=== PATIENT | female | born 1980 | race Caucasian/White ===

== ENCOUNTER 2017-01-12 07:04 | Emergency (ER) | payer BC ==
[~2017-01-12] VITALS: Ht 175.3 cm; Wt 90.7 kg
[~2017-01-12 07:04] MED LIST: AUGMENTIN 875-1 EACH PO; CYMBALTA60 MG PO; FIORICET 325 MG1 TAB PO; MEDROL 4MG. DOSE4 MG PO; METOCLOPRAMIDE H5 MG PO; OMEPRAZOLE20 MG PO; OXYCODONE-ACETA1 TAB PO; PERCOGESIC EXTR1 TAB PO; PRENATAL1 TA2 PO; PROMETRIUM; TESSALON PERLE100 MG PO; ZANTAC 150150 MG PO; ZOFRAN4 MG PO; [UNRECOGNIZED DRUG - OTHER] PO
[2017-01-12] MEDS ORDERED: BUSPIRONE HCL15 MG PO (07:14)
--- NOTE | 2017-01-12 07:22 | Emergency Room Report ---
History of Present Illness Time Seen by MD Joseph Presenting Problem in Triage Pt arrived:Walked Presenting Problem:MIGRAINE SINCE 399 Onset of symptoms date/time:/ or onset unknown for:MEDICAL HX UNKNOWN Treatment Prior to Arrival: [employer]CH[employer]IC[employer] Provided by:SELF Sepsis Risk Assessment: Temp: 97.6 B/P: 132/83 MAP: 99 Pulse: 77 Resp: 18 Recent fever? N Clinical Suspician of Infection? N Mental Status: 1 - Regular (Normal Baseline) Sepsis Risk:Low Sepsis Risk Have you (or family members/close friends) recently traveled outside the [place]? N If Yes, where/when: Have you had exposure to infectious disease within the past month? TB? Other? Specify: Source patient, RN notes reviewed, family, old records Exam Limitations no limitations Comment pt with acute migraine with hx of migraine Cardiac Chest Pain Chest pain indicative of cardiac No Timing/Duration this morning Severity moderate ALLERGIES Coded Allergies: Penicillins (Mild, 01/12/17) acetaminophen (From LORTAB) (Mild, 01/12/17) diphenhydramine (Mild, 01/12/17) hydrocodone (From LORTAB) (Mild, 01/12/17) tuberculin, purified protein deriva (Mild, 01/12/17) Home Medications Reported Medications Buspirone Hcl 15 MG PO QHS #30 History Medical History General CAD? No Angina: No [place]: No Hypertension? No Hyperlipidemia? No CHF? No DVT? No PE? No COPD? No Asthma? No Anemia? No GERD? No Gastric ulcers? No GI Bleed? No Hernia? No Thyroid Problems? No Hypothyroidism? No CVA? No Seizures? No Diabetes? No Renal Insuffiency? No End Stage Renal Disease? No UTI? No Stones? No BPH? No GB Disease: Yes Nephritic Syndrome? No Asplenia? No Hepatitis? No Sickle Cell Disease? No Arthritis? No Migraines? No Cataracts? No Glaucoma? No MRSA? No HIV? No TB? No Anxiety? No Depression? No Cancer? No More? No Immunization Hx Ped.Immunizations UTD Yes DT/Tetanus 5-10 YRS Flu NEVER Pneumonia NEVER Surgical Hx Previous Surgery?Y TONSILS REMOVED EGD BACK SURGERY-DISCECTOMY WISDOM TEETH EXTRACTION SPINAL FUSION GASTRIC SLEEVE GALLBLADDER HITAL HERNIA KITCHEN LEAD Hx LMP N/A Family History Family Hx Diabetes No CAD No Hypertension No Hyperlipidemia No Cancer Yes TB No Social History Smoking Hx Smoker: Former Smoker Tobacco: Yes Type Cigarettes Packs/day < 1 Pack Alcohol Alcohol: No Drugs none Review of Systems All Other Systems Reviewed and Negative Constitutional denies fever Eyes denies drainage ENT denies: ear pain, epistaxis, throat pain. Respiratory denies cough, denies wheezing Cardiovascular denies chest pain, denies syncope Gastrointestinal denies abdominal pain, denies diarrhea, denies vomiting Genitourinary denies: dysuria, frequency, hesitancy, hematuria. Musculoskeletal denies back pain, denies joint pain, denies joint swelling, denies neck pain Skin denies rash Psychiatric/Neurological see HPI, headache, denies seizure Physical Exam Vital Signs Vital Signs Date Time Temp Pulse Resp B/P Pulse O2 O2 Flow FiO2 Ox Delivery Rate 01/12 0749 18 01/12 0708 97.6 77 18 132/83 98 - WBC >12,000 or <4,000 or 10% bands? 2 or more SIRS Criteria Met? B/P:132/83 MAP:99 Creatinine >2.0? UA output<0.5ml/kg/hr for 2 hrs? Platelet count >100,000? Lactate >2.0mmol/1? INR >1.2 or PTT > than 60 sec? Evidence of Organ Dysfunction? Provider documented clinical suspician of infection? N Sepsis Criteria Count: 0 Sepsis Risk: Low Sepsis Risk General Appearance no apparent distress Eye Exam - bilateral eye PERRL, bilateral eye EOMI Ear, Nose, Throat normal ENT inspection Neck supple Respiratory Status No: respiratory distress. 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 No Results/Orders Current Medication Orders Sig/Gloria Start time Last Medication Dose Route Stop Time Status Admin Ketorolac 30 MG ONCE ONE 01/12 730 DC 01/12 Tromethamine IV 01/12 0731 0749 Metoclopramide HCl 10 MG ONCE ONE 01/12 730 DC 01/12 IVP 01/12 0731 0746 Promethazine HCl 12.5 MG ONCE ONE 01/12 730 DC 01/12 IV 01/12 0731 0746 Sodium Chloride 25 ML ONCE ONE 01/12 730 DC IV 01/12 0744 Sodium Chloride 1,000 ML .Q1H1M 01/12 730 AC 01/12 IV 01/12 830 0742 Sodium Chloride 10 ML PRN PRN 01/12 730 AC IV 01/13 0721 Sodium Chloride 1,000 ML .STK-MED ONE 01/12 718 DC IV Ketorolac 0 .STK-MED ONE 01/12 717 DC Tromethamine .ROUTE Metoclopramide HCl 0 .STK-MED ONE 01/12 717 DC .ROUTE Promethazine HCl 0 .STK-MED ONE 01/12 717 DC .ROUTE Progress ED Progress Notes Date 01/12/17 Time 0817 Comment better Departure Departure Time of Disposition 0814 Disposition DC Home or Self Care(routine) Clinical Impression Primary Impression: Headache Qualifiers: Headache type: unspecified Headache chronicity pattern: acute headache Intractability: not intractable Qualified Code: R51 - Headache Condition STABLE Patient Instructions DI for Headache Additional Instructions fluids and call pcp for follow up Discharge Counseling Counseled pt/family regarding diagnosis, medications/RX, follow up needs ED Critical Care Critical Care No at 0817
[2017-01-12 08:31] VITALS: BP 121/75
== END 2017-01-12 08:31 | disposition home or self-care (01) ==
LOC: ER 07:04
DX: R51 Headache (principal); Z88.6 Allergy status to analgesic agent

== ENCOUNTER 2017-05-08 09:23 | Emergency (ER) | payer BC ==
[~2017-05-08] VITALS: Ht 175.3 cm; Wt 97.5 kg
[~2017-05-08 09:23] MED LIST changes: +BUSPIRONE HCL15 MG PO
[2017-05-08] MEDS ORDERED: CYCLOBENZAPRINE10 MG PO (09:52)
[2017-05-08] MEDS ORDERED: LEVAQUIN250 M1 PO (09:52)
[2017-05-08] MEDS ORDERED: PROMETHAZINE D118 ML PO (09:52)
--- NOTE | 2017-05-08 09:52 | Urgent Treatment Center Report ---
History of Present Issue Date/Time Seen by Provider 05/08/17 0946 Visit Reason Pt arrived:Walked Presenting Problem:PT IS C.O HEAD CONGESTION, RIGHT EAR PAIN AND NECK PAIN THAT STARTED TUESDAY Location if Accident: Onset of symptoms date/time:/ or onset unknown for:MEDICAL HX UNKNOWN Have you (or family members/close friends) recently traveled outside the [place]? N If Yes, where/when: Have you had exposure to infectious disease within the past month? TB? Other? Specify: Source patient, RN notes reviewed Exam Limitations no limitations Comment Bilateral ear pain, cough, congestion and malaise X 3-4 days. No fever. Has also pulled a muscle in her neck from coughing so hard. ALLERGIES Coded Allergies: Penicillins (Mild, 01/12/17) acetaminophen (From LORTAB) (Mild, 01/12/17) diphenhydramine (Mild, 01/12/17) hydrocodone (From LORTAB) (Mild, 01/12/17) tuberculin, purified protein deriva (Mild, 01/12/17) History Medical History General CAD? No Angina: No [place]: No Hypertension? No Hyperlipidemia? No CHF? No DVT? No PE? No COPD? No Asthma? No Anemia? No GERD? No Gastric ulcers? No GI Bleed? No Hernia? No Thyroid Problems? No Hypothyroidism? No CVA? No Seizures? No Diabetes? No Renal Insuffiency? No UTI? No Stones? No BPH? No GB Disease: Yes Nephritic Syndrome? No Asplenia? No Hepatitis? No Sickle Cell Disease? No Arthritis? No Migraines? No Cataracts? No Glaucoma? No MRSA? No HIV? No TB? No Anxiety? No Depression? No Cancer? No More? No Immunization HX DT/Tetanus 5-10 YRS Flu NEVER Pneumonia NEVER Surgical Hx Previous Surgery?Y TONSILS REMOVED EGD BACK SURGERY-DISCECTOMY WISDOM TEETH EXTRACTION SPINAL FUSION GASTRIC SLEEVE GALLBLADDER HITAL HERNIA Family History Family HX Diabetes No CAD No Hypertension No Hyperlipidemia No Cancer Yes TB No Social History Smoking Hx Smoker: Former Smoker Tobacco: No Packs/day < 1 Pack Alcohol Alcohol: No Review of Systems All Other Systems Reviewed and Negative ENT ear pain, nose discharge, nose congestion. Respiratory cough Physical Exam Vital Signs Vital Signs Date Time Temp Pulse Resp B/P Pulse O2 O2 Flow FiO2 Ox Delivery Rate 05/08 0940 97.8 70 20 101/57 97 - WBC >12,000 or <4,000 or 10% bands? 2 or more SIRS Criteria Met? B/P: MAP:71 Creatinine >2.0? UA output<0.5ml/kg/hr for 2 hrs? Platelet count >100,000? Lactate >2.0mmol/1? INR >1.2 or PTT > than 60 sec? Evidence of Organ Dysfunction? Provider documented clinical suspician of infection? Sepsis Criteria Count: 1 Sepsis Risk: General Appearance normal appearance, no apparent distress Ear, Nose, Throat hearing grossly normal, abnormal TM (R), abnormal TM (L) Neck normal inspection, non-tender, supple, full range of motion Respiratory Status No: respiratory distress, trachea midline, chest symmetrical. Lung Sounds bilateral: decreased breath sounds, wheezing. Cardiovascular normal exam, regular rate/rhythm, no peripheral edema, no gallop, no JVD, no murmur, no rub Extremities non-tender, normal range of motion, normal inspection, normal capillary refill Neurologic alert, normal exam, oriented x 3 Mental status normal mood/affect Medical Decision Making LABS/Meds/Orders Pt receiving controlled substance in ED? No Departure Departure Time of Disposition 0949 Disposition DC Home or Self Care(routine) Clinical Impression Primary Impression: Sinusitis Qualifiers: Sinusitis location: maxillary Chronicity: acute Recurrence: not specified as recurrent Qualified Code: J01.00 - Acute maxillary sinusitis, unspecified Secondary Impressions: Bronchitis Condition STABLE Referrals Frances Valdes APRN (Family) Patient Instructions DI for Sinusitis Discharge Counseling Counseled pt/family regarding diagnosis, medications/RX, home care, follow up needs Prescriptions Current Visit Scripts Levofloxacin (Levaquin) 250 MG PO DAILY #7 TAB PROMETHAZINE/DEXTROMETHORPHAN (Promethazine-Dm Syrup) 118 ML PO QIDP PRN cough #120 SYR Cyclobenzaprine Hcl (Cyclobenzaprine 10MG) 10 MG PO TIDP PRN muscle spasm #30 TAB at 0978
[2017-05-08 10:00] VITALS: BP 101/57
--- OUTSIDE RECORDS SUMMARY | 2017-05-09 16:28 | External Medical Summary Rpt ---
Author Author , TRACEE EASLEY Address Unknown Phone [email or web address] Immunization Name Date Rout CVX Reac Dose Comm Prov Is Faci e tion ent ider Refu lity Give sed n Td 01-0 9 999 Hist H149 No H149 (madison 8-20 ori lt), 04 al Info adso rmat rbed ion - Sour ce Unsp ecif ied
--- OUTSIDE RECORDS SUMMARY | 2017-05-09 16:28 | External Medical Summary Rpt ---
Author Author [employer] Organization [employer] Address Unknown Phone Unavailable Purpose Continuity of Care Document - through 2016
--- OUTSIDE RECORDS SUMMARY | 2017-05-09 16:28 | External Medical Summary Rpt ---
Author Author TRACEE Address Unknown Phone [email or web address] Purpose Continuity of Care Document - through 2016
--- OUTSIDE RECORDS SUMMARY | 2017-05-09 16:28 | External Medical Summary Rpt ---
Author Author , TRACEE EASLEY Address Unknown Phone [email or web address] Immunization Name Date Rout CVX Reac Dose Comm Prov Is Faci e tion ent ider Refu lity Give sed n Td 01-0 9 999 Hist H149 No H149 (madison 8-20 ori lt), 04 al Info adso rmat rbed ion - Sour ce Unsp ecif ied
--- OUTSIDE RECORDS SUMMARY | 2017-05-09 16:28 | External Medical Summary Rpt ---
Author Author TRACEE Address Unknown Phone [email or web address] Purpose Continuity of Care Document - through 2016
--- OUTSIDE RECORDS SUMMARY | 2017-05-09 16:28 | External Medical Summary Rpt ---
Author Author TRACEE Osorio, [employer] Organization [employer] Address Unknown Phone Unavailable
== END 2017-05-08 10:03 | disposition home or self-care (01) ==
LOC: UTC 09:23
DX: J01.00 Acute maxillary sinusitis, unspecified (principal); Z87.891 Personal history of nicotine dependence